=== PATIENT | female | born 1960 | race Caucasian/White ===

== ENCOUNTER 2025-08-11 20:16 | Inpatient (IN) | payer MEDICARE, BC, SELFPAY ==
[2025-08-11 16:30] VITALS: BP 146/60
[2025-08-11 16:52] LABS: Hematocrit 38.0 % (37.0-47.0); Hemoglobin 12.3 g/dL (12.0-16.0); Mean Corp Hgb Conc. 32.4 g/dL (33.0-37.0); Mean Corpuscular Volume 91.1 fL (81.0-99.0); Nucleated Red Blood Cells % 0 %; Platelet Count 273 10^3/uL (130-400); Red Cell Dist. Width 13.9 % (11.5-14.5)
--- NOTE | 2025-08-11 17:02 | ED.GENMED ---
History of Present Illness
<AARON Hernandez - Last Filed: 08/11/25 19:16>
General
Chief Complaint: Breathing Problem
Source: patient
Exam Limitations: none
Time Seen by Provider: 08/11/25 17:02
Nursing documentation reviewed up to this point in time: agreed with
History of Present Illness
History of Present Illness:
Patient is a 65-year-old female, with a past medical history of A-fib hypertension hyperlipidemia presents to the ER for shortness of breath. Patient reports shortness of breath started yesterday. She was seen by her family doctor and sent to the
ER for evaluation. She does complain of increasing lower extremity swelling. She reports she was on [place] on vacation 2 weeks ago and was admitted for Afib. At That time her potassium was found to be low her magnesium was also found to be low.
Patient reports she is anticoagulated on Pradaxa.
She used to be on Eliquis however 6 months ago her insurance stopped covering and she is this medication.
she is not on a diuretic.
Phy Exam
<AARON Hernandez - Last Filed: 08/11/25 19:16>
General Physical Exam
General Presentation: no apparent distress
General age: appears stated age
General Skin: warm and dry
General Habitus: normal
General Mental: alert
General Hydration: appears well hydrated
Cardiovascular Exam
Cardiovascular Exam: regular rate/rhythm, no murmur and normal peripheral pulses
Pulmonary Exam
Pulmonary Exam: lungs clear and no respiratory distress
Neurological Exam
Neurological Exam: alert and oriented x3
Musculoskeletal Exam
Musculoskeletal Exam: full ROM and other (mild l/e swelling b/l )
Skin Exam
Skin Exam: normal color and warm/dry
Psychiatric Exam
Psychiatric Exam: normal mood/affect
Scores
<AARON Hernandez - Last Filed: 08/11/25 19:16>
Heart Failure Risk
Heart Failure Risk Score: Not Applicable
Course
<AARON Hernandez - Last Filed: 08/11/25 19:16>
Orders/Labs/Results
Orders:
Orders
08/11/25 16:26
Electrocardiogram (*1) Urgent
Reason for Study: Shortness of Breath
EKG- Treatment ONCE
08/11/25 16:41
Complete Blood Count/With Diff Urgent
Comprehensive Metabolic Panel Urgent
NT-proBNP Urgent
Troponin I Urgent
08/11/25 17:14
CT Chest PE Study Urgent
Comment:
Reason For Exam: Acute SOB hypoxia
08/11/25 18:53
Furosemide [Lasix] 40 mg IV NOW STA
Potassium Chloride [KCl] 40 meq PO NOW STA
Abnormal Lab Results
08/11/25
16:41
WBC 10.9 H 10^3/uL
(4.8-10.8)
RBC 4.17 L 10^6/uL
(4.20-5.40)
MCHC 32.4 L g/dL
(33.0-37.0)
Absolute Neuts (auto) 7.8 H 10^3/uL
(1.4-6.5)
Absolute Monos (auto) 0.8 H 10^3/uL
(0.1-0.6)
Lymphocytes % 18.9 L %
(20.5-51.1)
Potassium 3.3 L mmol/L
(3.5-5.1)
Carbon Dioxide 31 H mmol/L
(22-30)
Glucose 140 H mg/dl
(70-99)
AST 77 H U/L
(14-36)
ALT 121 H U/L
(0-35)
08/11/25 16:41
08/11/25 16:41
Vital Signs
Initial and Last Documented VS:
Initial Vital Signs
Temp Pulse Resp BP Pulse Ox
98.1 F 70 22 146/60 82
08/11/25 16:30 08/11/25 16:30 08/11/25 16:30 08/11/25 16:30 08/11/25 16:30
Last Documented Vital Signs
Temp Pulse Resp BP Pulse Ox
98.1 F 67 15 142/54 89
08/11/25 16:30 08/11/25 19:06 08/11/25 18:47 08/11/25 19:06 08/11/25 18:47
Raw Material Planner consulted with Physician
Raw Material Planner consulted with physician?: Yes
Name of Physician Consulted: cy
<Eze Rabago MD - Last Filed: 08/11/25 18:54>
Orders/Labs/Results
Orders:
Orders
08/11/25 16:26
Electrocardiogram (*1) Urgent
Reason for Study: Shortness of Breath
EKG- Treatment ONCE
08/11/25 16:41
Complete Blood Count/With Diff Urgent
Comprehensive Metabolic Panel Urgent
NT-proBNP Urgent
Troponin I Urgent
08/11/25 17:14
CT Chest PE Study Urgent
Comment:
Reason For Exam: Acute SOB hypoxia
08/11/25 18:53
Furosemide [Lasix] 40 mg IV NOW STA
Potassium Chloride [KCl] 40 meq PO NOW STA
Abnormal Lab Results
08/11/25
16:41
WBC 10.9 H 10^3/uL
(4.8-10.8)
RBC 4.17 L 10^6/uL
(4.20-5.40)
MCHC 32.4 L g/dL
(33.0-37.0)
Absolute Neuts (auto) 7.8 H 10^3/uL
(1.4-6.5)
Absolute Monos (auto) 0.8 H 10^3/uL
(0.1-0.6)
Lymphocytes % 18.9 L %
(20.5-51.1)
Potassium 3.3 L mmol/L
(3.5-5.1)
Carbon Dioxide 31 H mmol/L
(22-30)
Glucose 140 H mg/dl
(70-99)
AST 77 H U/L
(14-36)
ALT 121 H U/L
(0-35)
08/11/25 16:41
08/11/25 16:41
Vital Signs
Initial and Last Documented VS:
Initial Vital Signs
Temp Pulse Resp BP Pulse Ox
98.1 F 70 22 146/60 82
08/11/25 16:30 08/11/25 16:30 08/11/25 16:30 08/11/25 16:30 08/11/25 16:30
Last Documented Vital Signs
Temp Pulse Resp BP Pulse Ox
98.1 F 67 15 142/54 89
08/11/25 16:30 08/11/25 19:06 08/11/25 18:47 08/11/25 19:06 08/11/25 18:47
<AARON Hernandez - Last Filed: 08/11/25 19:16>
MDM/Problems Addressed
Differential Diagnosis Includes:
Not limited to PE CHF anemia electrolyte abnormality ACS
MDM/Problems Addressed:
Symptoms are consistent with CHF. Patient does have increasing lower extremity swelling /hypoxia. CAT scan shows moderate acute interstitial and alveolar cardiogenic pulmonary edema. 40 of IV Lasix given. Patient is currently not on a diuretic.
Her potassium is low and I did order K-Dur as well for potassium 0.3. Her LFTs are minimally elevated. Her troponin is negative no chest pain. pt eval by ED attending .
Chronic conditions affecting care:
afib/htn/hyperlipidemia
<AARON Hernandez - Last Filed: 08/11/25 19:16>
*Radiology
Radiology exam reviewed: radiology read reviewed
*Pulse Oximetry
SaO2: 82
Oxygen Mode of Delivery: Room air
Patient hypoxic: yes
*EKG
Interpretation: abnormal
Heart Rate: 66
Rate: normal
Rhythm: sinus
Ischemia: non-specific ST changes
*Critical Care Note
Total Time (30-74mins, 75-104mins- exclusive of procedures): Not Applicable
ED Attending Note
<AARON Hernandez - Last Filed: 08/11/25 19:16>
-
Portions of this chart may have been created with voice recognition software.� Occasional wrong word or��sound alike� substitutions may have occurred due to the inherent limitations of voice recognition software.
<Eze Rabago MD - Last Filed: 08/11/25 18:54>
ED Attending Note
Patient seen and examined by attending physician: Yes
ED Attending Note:
I have seen and evaluated the patient with a [id number] encounter. I have spoken to the advance practicer provider and involved in the medical history, the physical exam, medical decision making.
Evaluation and management service: agree unless noted differently below.
Results interpretation: agree unless noted differently below.
Focused HPI: 65-year-old female with a past medical history of hypertension, hyperlipidemia, atrial fibrillation on flecainide and Pradaxa as well as metoprolol who presents to the ER with her for evaluation of shortness of breath. Patient
reports onset of symptoms yesterday and they have been constant and progressive today. Associated with some swelling in the legs. Denies any chest pain or palpitations. She was admitted while on vacation in [place] for 3 days last month with
similar symptoms related to her A-fib. Her usual vegetable preparer is through [facility].
Physical exam: Awake and alert not in distress. Hypoxic requiring 4 L nasal cannula. No cardiac rubs gallops or murmurs appreciated and regular rhythm on auscultation. She has no JVD. She does have rales at the lung bases. She has trace edema
in the legs.
Medical Decision Makin-year-old female presents with shortness of breath and leg swelling. Found to be hypoxic. Labs were significant for hypokalemia. proBNP 599 likely falsely low with elevated BMI. Chest CT showed pulmonary edema but no
PE. Overall picture is consistent with CHF. Plan to supplement potassium provide IV diuresis, admit for continued management.
Discharge Plan
Departure
Patient Disposition: Admit
Date of Disposition: 08/11/25
Time of Disposition: 18:56
Admit to doctor: hospitalist
Presentation/result/management discussed w/ accepting MD/DO: Hospitalist
Patient with high blood pressure during this ER visit?: Yes
Condition: Fair
Covid-19: Not Applicable
Discharge Problem:
CHF (congestive heart failure)
Prescriptions:
No Action
flecainide 150 mg Tablet
150 mg PO Q12H
Theragen Tablet
1 tab PO DAILY
cholecalciferol (vitamin D3) [Vitamin D3] 25 mcg (1,000 unit) Tablet
25 mcg PO DAILY
atorvastatin [Lipitor] 20 mg Tablet
20 mg PO DAILY
metoprolol succinate [Toprol XL] 50 mg Tablet Extended Release 24 Hr
50 mg PO DAILY
cyanocobalamin (vitamin B-12) 1,000 mcg Tablet
1,000 mcg PO DAILY
omeprazole 40 mg Capsule,Delayed Release(Dr/Ec)
40 mg PO BID
losartan-hydrochlorothiazide 100-25 mg Tablet
1 tab PO DAILY
diltiazem HCl 120 mg Capsule,Extended Release 24 Hr
120 mg PO DAILY
dabigatran etexilate [Pradaxa] 150 mg Capsule
150 mg PO BID
Referrals:
Gavi De Jesus, DO [Family Provider, Internal Medicine]
Interventions
Interventions:
*Risk Screen - Suicide Last Done: 08/11/25 16:33
*General Assessment Last Done: 08/11/25 16:33
*Neglect/Abuse Screening Last Done: 08/11/25 16:33
*ED COVID-19 Vaccine History Last Done: 08/11/25 16:33
*ED Influenza Vaccine History Last Done: 08/11/25 16:33
ED- Cardiac Assessment Last Done: 08/11/25 17:37
ED- Pulmonary Assessment Last Done: 08/11/25 17:37
ED-Skin Assessment Last Done: 08/11/25 17:38
Discharge Date and Time
Print Language: SOUTH AFRICAN
[2025-08-11 17:14] LABS: ALT (SGPT) 121 U/L (0-35); AST (SGOT) 77 U/L (14-36); Albumin 4.0 g/dl (3.5-5.0); Alkaline Phosphatase 98 U/L (38-126); Blood Urea Nitrogen 16 mg/dl (7-17); Calcium 8.8 mg/dl (8.4-10.2); Carbon Dioxide 31 mmol/L (22-30); Chloride 99 mmol/L (98-107); Glucose 140 mg/dl (70-99); Potassium 3.3 mmol/L (3.5-5.1); Sodium 135 mmol/L (135-145); Total Protein 7.3 g/dl (6.3-8.2); Troponin I < 0.012 ng/ml; eGFR > 60.00
[2025-08-11 17:37] VITALS: BMI 46.3
[2025-08-11 19:03] VITALS: BP 142/54
[2025-08-11] MEDS: LASIX 40 MG IV (19:06)
[2025-08-11] MEDS: KCL 40 MEQ PO (19:06)
[2025-08-11 19:26] LABS: Magnesium 1.8 mg/dl (1.6-2.3)
--- NOTE | 2025-08-11 19:52 | HPS.HSE ---
Family Physician
-
Family Physician: Gavi De Jesus DO
Chief Complaint
-
SOB
History of Present Illness
Patient is a 65y F with PMH significant for paroxysmal A-Fib, hypertension and obesity who presents to ED complaining of SOB and edema. Patient states that her symptoms started yesterday. She reports dyspnea with any degree of activity. No
chest pain / palpitations. Patient does report recent non-productive cough. No fevers / chills. No GI or symptoms. Patient denies any prior h/o similar symptoms.
Patient was hospitalized two weeks ago while on vacation in [place]. She states that she was hospitalized for A-Fib. She does not get palpitations / know when she is in A-Fib typically.
Her med regimen was adjusted including increase in metoprolol from 25 to 50mg daily. She is not on chronic diuretics.
She is on Pradaxa and denies any missed doses.
Medical History
Past Medical History
Past Medical History: Reports Other
Additional Past Medical History:
Paroxysmal Atrial Fibrillation
Hypertension
Obesity
TIAGO not on CPAP
Past Surgical History: Reports Other
Additional Past Surgical History:
x 4
Foot Surgery
Mohs Surgery (one week ago)
Social History
Tobacco: Former Smoker (Quit smoking 40 years ago.)
Alcohol: None
Drug: None
Personal:
Living: With Family
Family History
Family History: Other (Mother and 5 Maternal Uncles with heart disease.)
Allergies / Home Medications
Allergies reflects when Allergies were last updated in [facility].
Home Medications with original date entered in [facility]
Allergy/Medication List:
Allergies
Allergy/AdvReac Type Severity Reaction Status Date / Time
No Known Allergies Allergy Verified 08/11/25 16:34
Home Medications
atorvastatin 20 mg tablet (Lipitor) 20 mg PO DAILY High Cholesterol 08/11/25
cholecalciferol (vitamin D3) 25 mcg (1,000 unit) tablet (Vitamin D3) 25 mcg PO DAILY Supplement 08/11/25
cyanocobalamin (vitamin B-12) 1,000 mcg tablet 1,000 mcg PO DAILY Supplement 08/11/25
dabigatran etexilate 150 mg capsule (Pradaxa) 150 mg PO BID Blood Clot Prevention/Tx 08/11/25
diltiazem HCl 120 mg capsule,24 hr,extended release 120 mg PO DAILY Heart Disease/Condition 08/11/25
flecainide 150 mg tablet 150 mg PO Q12H Blood Pressure 08/11/25
losartan 100 mg-hydrochlorothiazide 25 mg tablet 1 tab PO DAILY Blood Pressure 08/11/25
metoprolol succinate 50 mg tablet,extended release 24 hr (Toprol XL) 50 mg PO DAILY Heart Disease/Condition 08/11/25
omeprazole 40 mg capsule,delayed release 40 mg PO BID Gastrointestinal Issue 08/11/25
therapeutic multivitamin 1 tab PO DAILY 08/11/25
Review of Systems
-
History Source: Patient
A 12 point ROS was completed and negative except as noted: Yes
Constitutional: Reports Fatigue; Denies Fever or Chills
Respiratory: Reports Cough and Trouble Breathing; Denies Hemoptysis
Cardiac: Denies Chest Pain or Palpitations
Abdomen/GI: Denies Abdominal Pain, Nausea, Vomiting or Diarrhea
: Denies Dysuria or Frequency
Musculoskeletal: Reports Edema; Denies Joint Pain
Neurological: Denies Dizzy or Headache
Psych: Denies Depression or Anxiety
Physical Exam
Vital Signs
Vital Signs
Temp Pulse Resp BP Pulse Ox
98.1 F 86 22 142/54 85
08/11/25 16:30 08/11/25 19:19 08/11/25 19:19 08/11/25 19:06 08/11/25 19:19
Physical Exam
General: Other (65y F in no acute distress.)
HEENT: Other (Thick neck. No appreciable JVD / HJR.)
Respiratory: Other (Decreased BS bilaterally. Few rales at bases. No wheeze / rhonchi.)
Cardiac: S1/S2 and Regular Rhythm; No Murmur
GI: Soft, Non Tender, Non Distended and Normal Bowel Sounds
Musculoskeletal: No Clubbing, No Cyanosis and Other (Trace b/l LE edema - L > R.)
Neuro: AO x 3
Laboratory Results
-
08/11/25 16:41
08/11/25 16:41
Laboratory Results
Total Bilirubin 0.6 mg/dl (0.2-1.3) 08/11/25 16:41
AST 77 U/L (14-36) H 08/11/25 16:41
ALT 121 U/L (0-35) H 08/11/25 16:41
Alkaline Phosphatase 98 U/L (38-126) 08/11/25 16:41
Troponin I < 0.012 ng/ml 08/11/25 16:41
Impression/Plan
-
A/P: Patient is a 65y F with PMH significant for A-Fib and hypertension who presents to ED complaining of SOB and LE edema.
Acute HF- Unknown Type
Acute Hypoxemic Respiratory Failure secondary to the above
- Admit for further evaluation and treatment.
- Exam / BNP rather unimpressive considering degree of hypoxemia (82% on room air).
- CTA negative for PE and showed moderate pulmonary edema.
- No personal history of CHF.
- IV Lasix BID. Follow daily weights, I/Os.
- Stop diltiazem for now. Increase metoprolol / titrate as needed.
- Check Echo.
- Cardiology evaluation for additional recommendations. Follows with [facility] in [place].
Paroxysmal Atrial Fibrillation
- Stable. Currently in NSR.
- Continue flecainide.
- Continue metoprolol and titrate as noted above.
- Hold CCB for now given new HF.
- Continue Pradaxa for stroke risk reduction.
Hypokalemia
- Mild hypokalemia on HCTZ.
- Hold losartan / HCTZ for now.
- Potassium replacement and adjust dose as needed.
Benign Hypertension
- Stable. Continue metoprolol and increase as needed.
- Hold losartan / HCTZ acutely. Resume losartan alone if needed for BP control.
- IV diuresis as noted above and adjust BP regimen as needed for adequate diuresis.
Obesity due to excess calories
TIAGO not on PAP Therapy
- Affects all aspects of care.
- Patient not tolerant of PAP therapy.
- Encourage healthy diet / increased exercise with goal of weight loss.
Pulmonary Nodule
- Incidentally noted RLL pulmonary nodule on CTA done today.
- Outpatient follow-up including repeat imaging in about 6 months.
DVT Prophylaxis: On Pradaxa
Code Status: Full
[2025-08-11 20:21] LABS: COVID-19 Antigen Negative (Negative)
[2025-08-11 21:40] VITALS: BMI 45.3
[2025-08-11 21:50] VITALS: BMI 45.3
[2025-08-11] MEDS: KLOR-CON 20 MEQ PO (21:55)
[2025-08-11] MEDS: TOPROL XL 50 MG PO (21:59)
[2025-08-11] MEDS: PRADAXA 150 MG PO (21:59)
[2025-08-11 22:00] VITALS: BP 154/64
[2025-08-11] MEDS: TAMBOCOR 200 MG PO (22:17)
[2025-08-11 23:02] LABS: Troponin I < 0.012 ng/ml
[2025-08-12 03:00] VITALS: BP 136/57
[2025-08-12 04:27] LABS: Hematocrit 37.4 % (37.0-47.0); Hemoglobin 11.9 g/dL (12.0-16.0); Mean Corp Hgb Conc. 31.8 g/dL (33.0-37.0); Mean Corpuscular Volume 94.9 fL (81.0-99.0); Platelet Count 245 10^3/uL (130-400); Red Cell Dist. Width 13.9 % (11.5-14.5)
[2025-08-12 04:47] LABS: Blood Urea Nitrogen 13 mg/dl (7-17); Calcium 8.6 mg/dl (8.4-10.2); Carbon Dioxide 35 mmol/L (22-30); Estimated Creatinine Clearance 124 ml/min; HDL Cholesterol 44 mg/dl; Potassium 3.9 mmol/L (3.5-5.1); eGFR > 60.00
[2025-08-12 04:57] LABS: Chloride 100 mmol/L (98-107); Glucose 128 mg/dl (70-99); LDL Cholesterol, Calculated 88 mg/dl; Sodium 139 mmol/L (135-145); Very Low Density Lipoprotein 25 mg/dl (0-30)
[2025-08-12 04:59] LABS: Troponin I < 0.012 ng/ml
[2025-08-12 06:00] VITALS: BMI 45.1
[2025-08-12 07:00] VITALS: BP 156/92
--- NOTE | 2025-08-12 08:55 | CON.CAR ---
Addendum entered and electronically signed by Napoleon Rahman MD 08/12/25 10:59:
I saw and examined the patient independently, and performed majority of MDM.
The SEASONER HAND's note was reviewed and I agree with the note with changes/additions below.
Comment: 65 yo female with PMH of paroxysmal A fib on pradaxa and flecainide, admitted with SOB, edema, hypokalemia. She denies chest pain. Exam with RRR, no murmurs, 1+ LE edema. Tele: SR 60s. Cr 0.6.
Acute HF, unknown type, new
-severe, requiring hospitalization for IV lasix and close monitoring of labs/tele
-echo
-IV lasix
-given low K, start aldactone
Paroxysmal A fib
-stable in sinus: continue flecainide and Toprol XL
-cont pradaxa
Original Note:
Consultation
Consultation Request
Date/Time Consultation Requested: 08/11/252124
Date/Time Consultation Performed: 08/12/2545
Requesting Provider: Dr. Marion
Performing Provider: Savannah WALKER for Dr. Rahman
Reason for Consultation: CHF, PAF
Medical History
-
Chief Complaint: SOB
History of Present Illness:
65 y/o female (cardiology patient of Dr. Dimple Barreto) with history of AFIB on flecainide and Pradaxa, hypertension, dyslipidemia, TIAGO (does not tolerate CPAP), severe obesity, and esophagitis. She is here for evaluation of SOB x 2 days. She also
noted LE edema. She does not check weights. Her O2 sat was 82% and she is on O2 by AL. Her CXR revealed acute interstitial and cardiogenic pulmonary edema. No CP and normal trops. She does report orthopnea and PND. She was recently in hospital in
[place] for AFIB and UTI, as well as low K+ and mag. She tells me her flecainide was recently increased and plan was for CV next week. She is currently in SR. She thinks she was in AFIB for about 1.5 weeks.
Past Medical History
Past Medical History: Arrhythmias, HTN, Hypercholesterolemia and Other (as above)
Social History
Tobacco: Former Smoker
Alcohol: None
Drug: None
Family History
Family History: Other (dad: CHF and valve replacement )
Allergies / Home Medications
Allergy/AdvReac Type Severity Reaction Status Date / Time
No Known Allergies Allergy Verified 08/11/25 16:34
�Medication �Instructions �Recorded �Confirmed �Type
atorvastatin 20 mg tablet (Lipitor) 20 mg PO 2000 High Cholesterol 08/11/25 08/11/25 History
cholecalciferol (vitamin D3) 25 25 mcg PO DAILY Supplement 08/11/25 08/11/25 History
mcg (1,000 unit) tablet (Vitamin
D3)
cyanocobalamin (vitamin B-12) 1,000 mcg PO DAILY Supplement 08/11/25 08/11/25 History
1,000 mcg tablet
dabigatran etexilate 150 mg 150 mg PO BID Blood Clot 08/11/25 08/11/25 History
capsule (Pradaxa) Prevention/Tx
diltiazem HCl 120 mg capsule,24 120 mg PO DAILY Heart 08/11/25 08/11/25 History
hr,extended release Disease/Condition
flecainide 100 mg tablet 100 mg PO DAILY ANTIARRHYTHMIC 08/11/25 08/11/25 History
flecainide 100 mg tablet See Rx Instructions .Route 08/11/25 08/11/25 History
.COMPLEX ANTIARRHYTHMIC
losartan 100 1 tab PO DAILY Blood Pressure 08/11/25 08/11/25 History
mg-hydrochlorothiazide 25 mg tablet
metoprolol succinate 50 mg See Rx Instructions .Route 08/11/25 08/11/25 History
tablet,extended release 24 hr .COMPLEX Heart Disease/Condition
(Toprol XL)
omeprazole 40 mg capsule,delayed 40 mg PO DAILY Gastrointestinal 08/11/25 08/11/25 History
release Issue
therapeutic multivitamin 1 tab PO DAILY Supplement 08/11/25 08/11/25 History
Review of Systems
-
History Source: Patient
All other systems: Negative unless noted
Respiratory: Trouble Breathing
Musculoskeletal: Edema
Physical Exam
Vital Signs
Temp Pulse Resp BP Pulse Ox
98.4 F 66 12 156/92 96
08/12/25 07:00 08/12/25 07:00 08/12/25 07:00 08/12/25 07:00 08/12/25 07:00
Lab Results
08/12/25 04:11
08/12/25 04:11
Troponin I < 0.012 ng/ml 08/12/25 04:11
Grz-V-Mqavupcevhl Pept 599 pg/ml 08/11/25 16:41
Physical Exam
General: Well Developed and No Apparent Distress
HEENT: Normocephalic and Anicteric
Respiratory: Crackles (b/l bases ) and Other (on O2 by NC)
Cardiac: Regular Rhythm
Musculoskeletal: Edema (mild BLE edema)
Skin: Warm and Dry
Neuro: AO x 3
Psych: Calm
Impression / Plan
-
SOB:
-there is component of acute HF- type unknown, in setting of recent afib recurrence. Check echo. Agree with IV diuresis, which requires intensive monitoring. Hypokalemia noted on arrival, resolved following replacement. Will stop continued
replacement and add Aldactone (BP, hypokalemia, and CHF). Will have CM pavon [id number], but may just recommend add as an OP to avoid adding too many meds and avoiding AMOR as result; she does not have frequent UTI's (just the one a few weeks ago).
-other CT scan abnormalities per primary (see below)
AFIB: paroxysmal
-she reports that current medications as OP include flecainide 100 mg in AM and 200 mg in PM (recently increased by her manager of finance), as well as metoprolol 50 mg in PM and diltiazem 120 mg PO BID. Primary team has stopped diltiazem and increased
metoprolol. Monitor telemetry with these changes.
-continue Pradaxa for OAC
HTN:
-monitor with medicine adjustments -dilt stopped, metoprolol increased, losartan/HCTZ stopped- will add aldactone instead, continue IV diuresis
Obesity, severe: would benefit from weight loss moving forward
Untreated sleep apnea: reports she does not tolerate treatment
Data:
Chest CT: MODERATE ACUTE INTERSTITIAL and ALVEOLAR CARDIOGENIC PULMONARY EDEMA. Mild cardiomegaly. Small right pleural effusion. mild bibasilar subsegmental atelectasis. 1.5 cm part solid pulmonary nodule in the right lower lobe. Diagnostic
possibilities are (1) right lower lobe lung cancer or (2) focal infectious or inflammatory pneumonitis. 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
Data Reviewed
-
EKG: Tracing Personally Visualized and interpreted (NSR 62 BPM, 1st degree AVB, QTC 488 ms)
CT Scan: Report Reviewed by me (CT scan as noted)
Medical Tests (Nuc Med, Echo etc): Other (echo ordered and pending)
Labs: Labs Reviewed by me
[2025-08-12] MEDS: TAMBOCOR 100 MG PO (09:14)
[2025-08-12] MEDS: KLOR-CON 20 MEQ PO (09:14)
[2025-08-12] MEDS: PROTONIX 40 MG PO (09:14)
[2025-08-12] MEDS: LIPITOR 20 MG PO (09:14)
[2025-08-12] MEDS: PRADAXA 150 MG PO ×2 (09:14→20:46)
[2025-08-12] MEDS: TOPROL XL 50 MG PO ×2 (09:14→20:47)
[2025-08-12] MEDS: LASIX 40 MG IV ×2 (09:15→15:23)
[2025-08-12 09:40] LABS: Glycohemoglobin (HgbA1c) 6.3 % (4.0-5.9)
--- NOTE | 2025-08-12 10:30 | CARDSERVLU ---
Echocardiogram with Lumason completed after protocol screening completed. Allergies verified.
Patent IV site: __Right antecubital IV site clear___
IV site flushed with 0.9% NaCl pre and post administration.
Diluted bolus method utilized to enhance visualization of ventricular babin.
Total volume given: _4___ mL
Patient tolerated all procedures well without complications.
Procedure completed by Ashlyn Tarango (Lumason given by medical laboratory technologist).
[2025-08-12] MEDS: ALDACTONE 25 MG PO (10:59)
[2025-08-12 12:17] VITALS: BP 124/50
--- NOTE | 2025-08-12 12:51 | W.PN.HOSP.TC ---
Today's Communication/Plan
-
see outlined plan below
Assessment / Plan
Assessment / Plan
Assessment:
Acute HFpEF - new diagnosis
Acute Hypoxemic Respiratory Failure secondary to the above
- Exam/BNP rather unimpressive considering degree of hypoxemia (82% on room air).
- CTA negative for PE and showed moderate pulmonary edema.
- no prior hx of CHF
- Echo: Normal biventricular size and systolic function, with no regional wall motion abnormalities. Estimated LVEF 55-60%. No valve disease.
- continue IV Lasix - requires intensive monitoring of I/Os, weights, lytes
- GDMT: BB, Aldactone
- Wean O2 as able; add IS
- CBC cards following. OP is Dr. Dimple Barreto - [facility]
Paroxysmal Atrial Fibrillation
- Stable. Currently in NSR.
- Continue flecainide.
- Continue metoprolol and titrate as noted above.
- Hold CCB for now given new HF.
- Continue Pradaxa for stroke risk reduction.
Hypokalemia
- Mild hypokalemia on HCTZ.
- Hold losartan/HCTZ for now.
- Potassium replacement and adjust dose as needed.
Benign Hypertension
- Stable. continue metoprolol and increase as needed.
- Hold losartan/HCTZ acutely. Resume losartan alone if needed for BP control.
- IV diuresis as noted above and adjust BP regimen as needed for adequate diuresis.
Obesity due to excess calories
TIAGO not on PAP Therapy
- Affects all aspects of care.
- Patient not tolerant of PAP therapy.
- Encourage healthy diet/increased exercise with goal of weight loss.
- OP sleep evaluation
- consider Zepbound - d/w patient/
Pulmonary Nodule
- Incidentally noted RLL pulmonary nodule on CTA done today.
- Outpatient follow-up including repeat imaging in about 6 months.
DVT Prophylaxis: Pradaxa
Code Status: Full
Anticipated Discharge: 24 - 48 hours
Subjective/Interval History
-
Date of Service: August 12, 2025
reports breathing improving
LE edema improving
weight down from 130 to 126 kg
Objective Data
-
Labs:
Laboratory Results
08/12/25
04:11
WBC 9.7
Hgb 11.9 L
Hct 37.4
Plt Count 245
Sodium 139
Potassium 3.9
Chloride 100
Carbon Dioxide 35 H
BUN 13
Creatinine 0.6
Glucose 128 H
Calcium 8.6
Vital Signs:
Vital Signs
Temp Pulse Resp BP Pulse Ox
98.0 F 69 18 124/50 95
08/12/25 12:17 08/12/25 12:17 08/12/25 12:17 08/12/25 12:17 08/12/25 12:17
Physical Exam
-
General: No Apparent Distress
HEENT: Normocephalic and Atraumatic
Respiratory: Crackles (faint) and Decreased Breath Sounds
Cardiac: Regular Rhythm and S1/S2
GI: Soft
Musculoskeletal: No Edema and Other (trace edema bilateral LE)
Psych: Calm
Data Reviewed
-
Total Time Spent with Patient (in minutes): 51
Labs: Labs Reviewed by me
[2025-08-12 12:52] LABS: Troponin I 0.015 ng/ml
--- NOTE | 2025-08-12 13:11 | CM ---
CM reviewed chart, patient seen with , initial assessment completed.
Patient is a 65y F with PMH significant for paroxysmal A-Fib, hypertension and obesity who presents to ED complaining of SOB and edema.
Patient resides with her in a multiple level home, two steps to enter.
Patient is independent with ADLs/IADLs, denies use of DME, VN/SNF. Patient does not wear O2 at home.
PCP Gavi Paula, Pharmacy [facility], confirmed prescription coverage.
Patient denies insecurities at home.
Consult completed for pavon of Jardiance/Farxiga 10 mg- per Pharmacy, $30 co pay for one month supply. Patient and Physician updated.
CM will continue to follow for all d/c needs.
Plan; home no needs anticipated
[2025-08-12 15:24] VITALS: BP 106/65
[2025-08-12] MEDS: TAMBOCOR 200 MG PO (17:12)
[2025-08-12 19:00] VITALS: BP 145/62
[2025-08-12 23:00] VITALS: BP 111/51
[2025-08-12] MEDS: TYLENOL 650 MG PO (23:18)
[2025-08-12] MEDS: TESSALON PERLES 200 MG PO (23:30)
[2025-08-13 03:00] VITALS: BP 136/53
[2025-08-13 06:00] VITALS: BMI 44.6
[2025-08-13 07:00] VITALS: BP 121/54
--- NOTE | 2025-08-13 08:42 | W.PN.CD ---
Addendum entered and electronically signed by Napoleon Rahman MD 08/13/25 11:11:
I saw and examined the patient independently, and performed majority of MDM.
The DOCUMENTUM CONSULTANT's note was reviewed and I agree with the note with changes/additions below.
Comment: 65 yo female with PMH of paroxysmal A fib on pradaxa and flecainide, admitted with acute on chronic HF. Still with some edema, SOB. Exam with irregular rhythm, no murmurs, trace LE edema. Cr 0.6. Tele: SR--> A fib 90s.
Acute HFPEF, new
-severe, requiring hospitalization for IV lasix and close monitoring of labs/tele
-echo: EF 55-60%, no sig valve disease
-continue lasix 40mg IV bid, and aldactone 25mg daily
-defer SGLT2i given recent UTI
Paroxysmal A fib
-was sinus on admit; now back in A fib
-increase Toprol XL to 100mg bid
-continue flecainide
-cont pradaxa
Original Note:
Today's Communication / Plan
-
continue IV Lasix and current medical therapy
Impression / Plan
-
HFpEF - acute.
-in setting of recent Afib recurrence
-echo as below, EF normal, no valve disease
-agree with IV diuresis, which requires intensive monitoring
-weight on admit 286 lbs, now 276 lbs
Hypokalemia - noted on arrival, resolved following replacement
-stop continued KCL replacement since added Aldactone (BP, hypokalemia, and CHF). awaiting am labs
-will have CM pavon SGLT2I, but may just add as an OP to avoid adding too many meds and avoiding AMOR as result; she does not have frequent UTI's (just the one a few weeks ago)
Afib - paroxysmal
-current OP medications are flecainide 100 mg in AM and 200 mg in PM (recently increased by her automatic brine mixer operator), as well as metoprolol 50 mg in PM and diltiazem 120 mg PO BID
-stopped diltiazem and increased metoprolol. Monitor telemetry with these changes
-continue Pradaxa for OAC
HTN - chronic
-monitor with diltiazem stopped, metoprolol increased, losartan/HCTZ stopped, Aldactone added and continue IV diuresis
Obesity - severe
-would benefit from weight loss
Untreated sleep apnea - chronic
-reports she does not tolerate treatment
Data:
Chest CT: MODERATE ACUTE INTERSTITIAL and ALVEOLAR CARDIOGENIC PULMONARY EDEMA. Mild cardiomegaly. Small right pleural effusion. mild bibasilar subsegmental atelectasis. 1.5 cm part solid pulmonary nodule in the right lower lobe. Diagnostic
possibilities are (1) right lower lobe lung cancer or (2) focal infectious or inflammatory pneumonitis. 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
Echo 08/12/25:
1. Contrast was used.
2. Normal biventricular size and systolic function, with no regional wall motion abnormalities. Estimated LVEF 55-60%.
3. No significant valve disease.
4. No prior study for comparison.
Physical Exam
Vital Signs/Labs
Vital Signs
Temp Pulse Resp BP Pulse Ox
100 F 65 18 121/54 94
08/13/25 07:00 08/13/25 07:00 08/13/25 07:00 08/13/25 07:00 08/13/25 07:00
08/12/25 08/13/25 08/14/25
06:59 06:59 06:59
Actual Weight 279 lb 3 oz 276 lb 6 oz
08/12/25 04:11
Magnesium 1.8 mg/dl (1.6-2.3) 08/11/25 16:41
Triglycerides 129 mg/dl (10-149) 08/12/25 04:11
LDL Cholesterol, Calc 88 mg/dl 08/12/25 04:11
VLDL Cholesterol, Calc 25 mg/dl (0-30) 08/12/25 04:11
HDL Cholesterol 44 mg/dl 08/12/25 04:11
08/11/25
16:41
Dlr-S-Avzlyciwajm Pept 599
LAB Results
08/11/25 08/11/25 08/11/25
16:41 21:25 22:30
Troponin I < 0.012 Cancelled < 0.012
08/12/25 08/12/25
04:11 12:24
Troponin I < 0.012 0.015
Physical Exam
Constitutional: No acute distress
EENT: Anicteric and Moist mucous membranes
Cardiovascular: Rhythm/rate is irregular
Respiratory: Respiratory effort normal and Other (diminished b/l bases)
GI: Soft, Non tender and Normal bowel sounds
Neuro/Psych: AO x 3
Other: Skin (warm, dry)
Data Reviewed
-
Date of Service: August 13, 2025
Medical Decision Making: Reviewed Test Results
EKG: Tracing Personally Visualized and interpreted
Echo: Report Reviewed by me
Labs: Labs Reviewed by me
[2025-08-13] MEDS: TOPROL XL 50 MG PO ×2 (08:45→12:29)
[2025-08-13] MEDS: ALDACTONE 25 MG PO (08:45)
[2025-08-13] MEDS: PROTONIX 40 MG PO (08:45)
[2025-08-13] MEDS: PRADAXA 150 MG PO ×2 (08:45→20:47)
[2025-08-13] MEDS: TAMBOCOR 100 MG PO (08:46)
[2025-08-13] MEDS: LASIX 40 MG IV ×2 (08:46→16:19)
[2025-08-13] MEDS: LIPITOR 20 MG PO (08:46)
[2025-08-13 09:23] LABS: Blood Urea Nitrogen 16 mg/dl (7-17); Calcium 8.4 mg/dl (8.4-10.2); Carbon Dioxide 35 mmol/L (22-30); Chloride 93 mmol/L (98-107); Estimated Creatinine Clearance 123 ml/min; Glucose 92 mg/dl (70-99); Magnesium 1.9 mg/dl (1.6-2.3); Potassium 3.8 mmol/L (3.5-5.1); Sodium 133 mmol/L (135-145); eGFR > 60.00
[2025-08-13 11:00] VITALS: BP 117/60
--- NOTE | 2025-08-13 11:05 | W.PN.HOSP.TC ---
Today's Communication/Plan
-
increase rate control
continue IV diuresis
wean O2 as able
hopefully DC in 24 hours
Assessment / Plan
Assessment / Plan
Assessment:
Acute HFpEF - new diagnosis
Acute Hypoxemic Respiratory Failure secondary to the above
- Exam/BNP rather unimpressive considering degree of hypoxemia (82% on room air).
- CTA negative for PE and showed moderate pulmonary edema.
- no prior hx of CHF
- Echo: Normal biventricular size and systolic function, with no regional wall motion abnormalities. Estimated LVEF 55-60%. No valve disease.
- continue IV Lasix - requires intensive monitoring of I/Os, weights, lytes
- GDMT: BB, Aldactone
- patient has affordability for SGLT2-inhibitor; can review for addition with her primary Carpenter'S Helper.
- Wean O2 as able; encourage IS
- CBC cards following. OP is Dr. Dimple [facility]reto - [facility]
Paroxysmal Atrial Fibrillation
- Stable. Currently in NSR.
- Continue flecainide.
- Continue metoprolol and titrate as noted above.
- Hold CCB for now given new HF.
- Continue Pradaxa for stroke risk reduction.
Hypokalemia
- Mild hypokalemia on HCTZ.
- stop losartan/HCTZ as Aldactone added
- Potassium replacement and adjust dose as needed.
Benign Hypertension
- Stable. continue metoprolol and increase as needed.
- stop losartan/HCTZ as Aldactone added
- IV diuresis as noted above and adjust BP regimen as needed for adequate diuresis.
Obesity due to excess calories
TIAGO not on PAP Therapy
- Affects all aspects of care.
- Patient not tolerant of PAP therapy.
- Encourage healthy diet/increased exercise with goal of weight loss.
- OP sleep evaluation
- consider Zepbound - d/w patient/
Pulmonary Nodule
- Incidentally noted RLL pulmonary nodule on CTA done today.
- Outpatient follow-up including repeat imaging in about 6 months with her established Pulmonary doctor.
DVT Prophylaxis: Pradaxa
Code Status: Full
Anticipated Discharge: Within 24 hours
Subjective/Interval History
-
Date of Service: August 13, 2025
HRs slightly elevated; denies palpatations, CP or SOB
down to 2L NC
Objective Data
-
Labs:
Laboratory Results
08/13/25
07:27
Sodium 133 L
Potassium 3.8
Chloride 93 L
Carbon Dioxide 35 H
BUN 16
Creatinine 0.6
Glucose 92
Calcium 8.4
Vital Signs:
Vital Signs
Temp Pulse Resp BP Pulse Ox
100 F 65 18 121/54 94
08/13/25 07:00 08/13/25 07:00 08/13/25 07:00 08/13/25 07:00 08/13/25 07:00
I&O
08/12/25 08/13/25 08/14/25
06:59 06:59 06:59
Intake Total 720 / 720
Balance 720 / 720
Physical Exam
-
General: No Apparent Distress
HEENT: Normocephalic and Atraumatic
Respiratory: Negative Wheezes
Cardiac: Regular Rhythm and S1/S2
GI: Soft
Neuro: AO x 3
Psych: Calm
Data Reviewed
-
Total Time Spent with Patient (in minutes): 51
Labs: Labs Reviewed by me
[2025-08-13 15:00] VITALS: BP 131/62
[2025-08-13] MEDS: TAMBOCOR 200 MG PO (17:14)
[2025-08-13 19:00] VITALS: BP 128/61
[2025-08-13] MEDS: TOPROL XL 100 MG PO (20:47)
[2025-08-13 23:00] VITALS: BP 141/69
[2025-08-14 03:00] VITALS: BP 132/60
[2025-08-14 04:30] VITALS: BMI 44.3
[2025-08-14 07:20] VITALS: BP 135/68
[2025-08-14 08:16] LABS: Blood Urea Nitrogen 18 mg/dl (7-17); Calcium 8.7 mg/dl (8.4-10.2); Carbon Dioxide 40 mmol/L (22-30); Chloride 93 mmol/L (98-107); Estimated Creatinine Clearance 123 ml/min; Glucose 98 mg/dl (70-99); Potassium 3.9 mmol/L (3.5-5.1); Sodium 134 mmol/L (135-145); eGFR > 60.00
[2025-08-14] MEDS: LIPITOR 20 MG PO (08:41)
[2025-08-14] MEDS: PRADAXA 150 MG PO ×2 (08:41→19:50)
[2025-08-14] MEDS: PROTONIX 40 MG PO (08:41)
[2025-08-14] MEDS: TOPROL XL 100 MG PO ×2 (08:41→19:51)
[2025-08-14] MEDS: TAMBOCOR 100 MG PO (08:41)
[2025-08-14] MEDS: ALDACTONE 25 MG PO (08:41)
[2025-08-14] MEDS: LASIX 40 MG IV ×2 (08:42→16:49)
--- NOTE | 2025-08-14 10:29 | W.PN.CD ---
Today's Communication / Plan
-
- Rate controlled atrial fibrillation. On metoprolol 100 mg twice a day. Continue flecainide.
- Chlorthalidone 25 mg x1 now
Impression / Plan
-
HFpEF - acute.
-in setting of recent Afib recurrence
-echo as below, EF normal, no valve disease
-agree with IV diuresis, which requires intensive monitoring
-weight on admit 286 lbs, now 274 lbs
Hypokalemia - noted on arrival, resolved following replacement
-stop continued KCL replacement since added Aldactone (BP, hypokalemia, and CHF). awaiting am labs
-will have CM pavon SGLT2I, but may just add as an OP to avoid adding too many meds and avoiding AMOR as result; she does not have frequent UTI's (just the one a few weeks ago)
Afib - paroxysmal
-current OP medications are flecainide 100 mg in AM and 200 mg in PM (recently increased by her processing analyst), as well as metoprolol 50 mg in PM and diltiazem 120 mg PO BID
-stopped diltiazem and increased metoprolol. Monitor telemetry with these changes
-Still in AF
-continue Pradaxa for OAC
HTN - chronic
-monitor with diltiazem stopped, metoprolol increased, losartan/HCTZ stopped, Aldactone added and continue IV diuresis
Obesity - severe
-would benefit from weight loss
Untreated sleep apnea - chronic
-reports she does not tolerate treatment
Data:
Chest CT: MODERATE ACUTE INTERSTITIAL and ALVEOLAR CARDIOGENIC PULMONARY EDEMA. Mild cardiomegaly. Small right pleural effusion. mild bibasilar subsegmental atelectasis. 1.5 cm part solid pulmonary nodule in the right lower lobe. Diagnostic
possibilities are (1) right lower lobe lung cancer or (2) focal infectious or inflammatory pneumonitis. 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
Echo 08/12/25:
1. Contrast was used.
2. Normal biventricular size and systolic function, with no regional wall motion abnormalities. Estimated LVEF 55-60%.
3. No significant valve disease.
4. No prior study for comparison.
Physical Exam
Vital Signs/Labs
Vital Signs
Temp Pulse Resp BP Pulse Ox
100.3 F 75 16 135/68 95
08/14/25 07:20 08/14/25 08:41 08/14/25 07:20 08/14/25 08:41 08/14/25 07:20
08/13/25 08/14/25 08/15/25
06:59 06:59 06:59
Actual Weight 125.362 kg 124.341 kg
08/12/25 04:11
08/14/25 07:03
Magnesium 1.9 mg/dl (1.6-2.3) 08/13/25 07:27
Triglycerides 129 mg/dl (10-149) 08/12/25 04:11
LDL Cholesterol, Calc 88 mg/dl 08/12/25 04:11
VLDL Cholesterol, Calc 25 mg/dl (0-30) 08/12/25 04:11
HDL Cholesterol 44 mg/dl 08/12/25 04:11
08/11/25
16:41
Vhm-X-Jtinbqasffh Pept 599
LAB Results
08/11/25 08/11/25 08/11/25
16:41 21:25 22:30
Troponin I < 0.012 Cancelled < 0.012
08/12/25 08/12/25
04:11 12:24
Troponin I < 0.012 0.015
Physical Exam
Constitutional: No acute distress and Comfortable
EENT: Anicteric and Moist mucous membranes
Cardiovascular: Rhythm & rate is regular, Pedal edema is absent and JVD pressure is normal
Respiratory: Respiratory effort normal and Lungs clear to auscul.
GI: Soft, Non tender and Normal bowel sounds
Neuro/Psych: Alert, Oriented, AO x 3 and Motor deficits absent
Data Reviewed
-
Date of Service: August 14, 2025
Medical Decision Making: Reviewed Test Results, Test Interpretation and Review of Case with other Provider
EKG: Tracing Personally Visualized and interpreted
Echo: Report Reviewed by me
Labs: Labs Reviewed by me
Old Records: Reviewed
[2025-08-14 11:15] VITALS: BP 124/60
[2025-08-14 15:30] VITALS: BP 119/59
--- NOTE | 2025-08-14 16:03 | W.PN.HOSP.TC ---
Today's Communication/Plan
-
continue IV Lasix
follow CBC cards
Assessment / Plan
Assessment / Plan
Assessment:
Acute HFpEF - new diagnosis
Acute Hypoxemic Respiratory Failure secondary to the above
- Exam/BNP rather unimpressive considering degree of hypoxemia (82% on room air).
- CTA negative for PE and showed moderate pulmonary edema.
- no prior hx of CHF
- Echo: Normal biventricular size and systolic function, with no regional wall motion abnormalities. Estimated LVEF 55-60%. No valve disease.
- continue IV Lasix - requires intensive monitoring of I/Os, weights, lytes
- GDMT: BB, Aldactone
- patient has affordability for SGLT2-inhibitor; can review for addition with her primary Planer Chain Offbearer.
- Wean O2 as able; encourage IS
- CBC cards following. OP is Dr. Dimple Barreto - [facility]
Paroxysmal Atrial Fibrillation
- Stable. Currently in NSR.
- Continue flecainide.
- Continue metoprolol and titrate as noted above.
- Hold CCB for now given new HF.
- Continue Pradaxa for stroke risk reduction.
Hypokalemia
- Mild hypokalemia on HCTZ.
- stop losartan/HCTZ as Aldactone added
- Potassium replacement and adjust dose as needed.
Benign Hypertension
- Stable. continue metoprolol and increase as needed.
- stop losartan/HCTZ as Aldactone added
- IV diuresis as noted above and adjust BP regimen as needed for adequate diuresis.
Obesity due to excess calories
TIAGO not on PAP Therapy
- Affects all aspects of care.
- Patient not tolerant of PAP therapy.
- Encourage healthy diet/increased exercise with goal of weight loss.
- OP sleep evaluation
- consider Zepbound - d/w patient/
Pulmonary Nodule
- Incidentally noted RLL pulmonary nodule on CTA done today.
- Outpatient follow-up including repeat imaging in about 6 months with her established Pulmonary doctor.
DVT Prophylaxis: Pradaxa
Code Status: Full
Anticipated Discharge: Within 24 hours
Subjective/Interval History
-
Date of Service: August 14, 2025
SOB improving
denies CP
Objective Data
-
Labs:
Laboratory Results
08/14/25
07:03
Sodium 134 L
Potassium 3.9
Chloride 93 L
Carbon Dioxide 40 H
BUN 18 H
Creatinine 0.6
Glucose 98
Calcium 8.7
Vital Signs:
Vital Signs
Temp Pulse Resp BP Pulse Ox
98.9 F 85 16 124/60 95
08/14/25 11:15 08/14/25 11:15 08/14/25 11:15 08/14/25 11:15 08/14/25 11:15
I&O
08/13/25 08/14/25 08/15/25
06:59 06:59 06:59
Intake Total 720 / 720 1260 / 1260
Balance 720 / 720 1260 / 1260
Physical Exam
-
General: No Apparent Distress and Morbidly Obese
HEENT: Normocephalic and Atraumatic
Respiratory: Negative Wheezes
Cardiac: Regular Rhythm and S1/S2
GI: Soft and Nontender
Genito-urinary: No Costovertebral Tender
Neuro: AO x 3
Psych: Calm
Data Reviewed
-
Total Time Spent with Patient (in minutes): 51
Labs: Labs Reviewed by me
[2025-08-14] MEDS: TAMBOCOR 200 MG PO (16:49)
[2025-08-14] MEDS: TESSALON PERLES 200 MG PO (17:12)
[2025-08-14 19:55] VITALS: BP 107/51
[2025-08-14 23:11] VITALS: BP 137/69
[2025-08-15 03:00] VITALS: BP 139/60
[2025-08-15 06:00] VITALS: BMI 43.5
[2025-08-15 07:00] VITALS: BP 108/77
[2025-08-15] MEDS: PRADAXA 150 MG PO (08:43)
[2025-08-15] MEDS: TAMBOCOR 100 MG PO (08:43)
[2025-08-15] MEDS: LIPITOR 20 MG PO (08:43)
[2025-08-15] MEDS: TOPROL XL 100 MG PO (08:43)
[2025-08-15] MEDS: ALDACTONE 25 MG PO (08:43)
[2025-08-15] MEDS: PROTONIX 40 MG PO (08:44)
[2025-08-15] MEDS: LASIX 40 MG IV (08:44)
[2025-08-15 09:11] LABS: Blood Urea Nitrogen 20 mg/dl (7-17); Calcium 9.1 mg/dl (8.4-10.2); Carbon Dioxide 34 mmol/L (22-30); Chloride 95 mmol/L (98-107); Estimated Creatinine Clearance 104 ml/min; Glucose 97 mg/dl (70-99); Magnesium 2.0 mg/dl (1.6-2.3); Potassium 3.8 mmol/L (3.5-5.1); Sodium 137 mmol/L (135-145); eGFR > 60.00
--- NOTE | 2025-08-15 10:26 | W.PN.HOSP.TC ---
Today's Communication/Plan
-
dc to home today
Assessment / Plan
Assessment / Plan
Assessment:
Acute HFpEF - new diagnosis
Acute Hypoxemic Respiratory Failure secondary to the above
- Exam/BNP rather unimpressive considering degree of hypoxemia (82% on room air).
- CTA negative for PE and showed moderate pulmonary edema.
- no prior hx of CHF
- Echo: Normal biventricular size and systolic function, with no regional wall motion abnormalities. Estimated LVEF 55-60%. No valve disease.
- s/p IV Lasix; dc on oral Lasix
- GDMT: BB, Aldactone
- patient has affordability for SGLT2-inhibitor; can review for addition with her primary Pediatric Dental Assistant.
- CBC cards following. OP is Dr. Dimple Barreto - [facility]
Paroxysmal Atrial Fibrillation
- Stable. Currently in NSR.
- Continue flecainide.
- Continue metoprolol and titrate as noted above.
- stop CCB for now given new HF.
- Continue Pradaxa for stroke risk reduction.
Hypokalemia
- Mild hypokalemia on HCTZ.
- stop losartan/HCTZ as Aldactone added
- Potassium replacement and adjust dose as needed.
Benign Hypertension
- Stable. continue metoprolol and increase as needed.
- stop losartan/HCTZ as Aldactone added
Obesity due to excess calories
TIAGO not on PAP Therapy
- Affects all aspects of care.
- Patient not tolerant of PAP therapy.
- Encourage healthy diet/increased exercise with goal of weight loss.
- OP sleep evaluation
- consider Zepbound - d/w patient/
Pulmonary Nodule
- Incidentally noted RLL pulmonary nodule on CTA done today.
- Outpatient follow-up including repeat imaging in about 6 months with her established Pulmonary doctor.
DVT Prophylaxis: Pradaxa
Code Status: Full
More than 30 minutes spent in discharge including
Final examination of the patient
Summarizing hospital stay
Instructions for continuing care to all relevant caregivers
Preparation of discharge records, prescriptions, and referral forms
Total time spent (in minutes): 41
Anticipated Discharge: Today
Subjective/Interval History
-
Date of Service: August 15, 2025
resting comfortably, no complaints
off O2
Objective Data
-
Labs:
Laboratory Results
08/15/25
07:51
Sodium 137
Potassium 3.8
Chloride 95 L
Carbon Dioxide 34 H
BUN 20 H
Creatinine 0.7
Glucose 97
Calcium 9.1
Vital Signs:
Vital Signs
Temp Pulse Resp BP Pulse Ox
99.5 F 91 14 136/83 94
08/15/25 07:00 08/15/25 08:43 08/15/25 07:00 08/15/25 08:43 08/15/25 07:00
I&O
08/14/25 08/15/25 08/16/25
06:59 06:59 06:59
Intake Total 1260 / 1260 240 / 240 240 / 240
Balance 1260 / 1260 240 / 240 240 / 240
Physical Exam
-
General: No Apparent Distress
HEENT: Normocephalic and Atraumatic
Respiratory: Negative Wheezes
Cardiac: Regular Rhythm and S1/S2
GI: Soft and Nontender
Musculoskeletal: No Edema
Neuro: AO x 3
Psych: Calm
Data Reviewed
-
Total Time Spent with Patient (in minutes): 42
Labs: Labs Reviewed by me
--- NOTE | 2025-08-15 10:34 | W.DCSUMMARY ---
Discharge Summary
Discharge Data
Date of Admission: 08/11/25
Date of Discharge: 08/15/25
-
Pending Results: No
Hospital Course
65 y/o F hx of paroxysmal A-Fib, hypertension and obesity who presented to ED on 08/11 complaining of SOB and edema. She was found to have pulmonary edema on CT and elevated BNP; ruling in for acute CHF. Echo showed Normal biventricular size and
systolic function, with no regional wall motion abnormalities. Estimated LVEF 55-60%. She received IV Lasix with weight reduction and was transitioned to oral Lasix 40mg daily. Aldactone was started (Losartan/HCTZ stopped) and Toprol XL was titrated
up to 100mg. She was maintained on Flecainide as well for A. Fib in addition to Pradaxa. SLGT2 inhibitors were priced to $30 dollars/monthly but patient will discuss with her outpatient Gunner Mate (Dr. Dimple Barreto - [facility]). She will
follow up in 1-2 weeks with this office.
Her CT showed 1.5 cm part solid pulmonary nodule in the right lower lobe. She will need repeat CT in 6 months and pulmonary follow up. She was recommended to follow up with sleep medicine also on trialing a new CPAP mask as she is noncompliant with
current mask. Also recommended patient discuss Zepbound for weight loss.
Patient was discharged home on 08/15.
Discharge Plan
-
Patient Disposition: Home (Routine Discharge)
Discharge Diagnosis/Procedures: acute CHF requiring IV diuretics
Condition: Fair
Diet: Low Cholesterol, 2 Gram Sodium and Restrict fluids to 48 oz
Activity: As tolerated
Bathing Restrictions: None
Blood Work: BMP in 1 week - have results sent to your seaport planning manager. Script given.
Others Tests: CT scan in 6 months- your lung doctor or primary care doctor can arrange this.
Activity Restrictions/Additional Instructions:
Please discuss SLGT2 inhibitor class of medication with Dr. Musa - this is an additional heart mediciation which is $30 per month per your insurance/pharmacy. We opted not to start it now due to not wanting to add to many medications all at once.
Please follow up with your sleep medicine/pulmonary doctor regarding lung nodule follow up, new CPAP mask and discuss Zepbound (approved for weight loss in sleep apnea patients)
Instructions: *CBC Heart Failure Instructions
Referrals:
Dimple Montero MD [Non-Admitting Privileges, Cardiology]
Gavi De Jesus DO [Family Provider, Internal Medicine]
Additional Discharge Medication Instructions: stop diltiazem + Losartan/HCTZ. Metoprolol dose increased (new script given)
Prescriptions:
New
metoprolol succinate 100 mg Tablet Extended Release 24 Hr
100 mg PO BID Qty: 60 0RF
spironolactone 25 mg Tablet
25 mg PO DAILY Qty: 30 0RF
furosemide [Lasix] 40 mg tablet
40 mg PO DAILY Qty: 30 0RF
Continued
omeprazole 40 mg Capsule,Delayed Release(Dr/Ec)
40 mg PO DAILY
atorvastatin [Lipitor] 20 mg Tablet
20 mg PO 2000 Qty: 30 0RF
flecainide 100 mg Tablet
100 mg PO DAILY Qty: 30 0RF
dabigatran etexilate [Pradaxa] 150 mg Capsule
150 mg PO BID Qty: 60 0RF
Changed
flecainide 100 mg Tablet
200 mg PO QPM Qty: 60 0RF
Rx Instructions:
200 mg orally;
Discontinued
metoprolol succinate [Toprol XL] 50 mg Tablet Extended Release 24 Hr
See Rx Instructions .ROUTE .COMPLEX
Rx Instructions:
50 mg orally daily at 1800
No Action
Theragen Tablet
1 tab PO DAILY
cholecalciferol (vitamin D3) [Vitamin D3] 25 mcg (1,000 unit) Tablet
25 mcg PO DAILY
cyanocobalamin (vitamin B-12) 1,000 mcg Tablet
1,000 mcg PO DAILY
losartan-hydrochlorothiazide 100-25 mg Tablet
1 tab PO DAILY
diltiazem HCl 120 mg Capsule,Extended Release 24 Hr
120 mg PO DAILY
Discharge Orders:
Discharge Patient (As Directed); Ordered 08/15/25
Ordered By: Tommy Perez
Discharge Date and Time
Print Language: KOREAN
[2025-08-15 10:55] VITALS: BP 130/81
--- NOTE | 2025-08-15 11:17 | W.PN.CD ---
Today's Communication / Plan
-
- Still in rate controlled AF
- Close to Euvolemic - discharge home on PO lasix
- Plan for outpatient cardiology evaluation. Appt with CCP in 3 days.
Impression / Plan
-
HFpEF - acute.
-in setting of recent Afib recurrence
-echo as below, EF normal, no valve disease
-s/p IV diuresis, which requires intensive monitoring
-weight on admit 286 lbs, now 270 lbs
-Switch to PO lasix now.
- Stable for discharge.
Hypokalemia - noted on arrival, resolved following replacement
-stop continued KCL replacement since added Aldactone (BP, hypokalemia, and CHF). awaiting am labs
-will have CM pavon SGLT2I, but may just add as an OP to avoid adding too many meds and avoiding AMOR as result; she does not have frequent UTI's (just the one a few weeks ago)
Afib - paroxysmal
-current OP medications are flecainide 100 mg in AM and 200 mg in PM (recently increased by her blurb writer), as well as metoprolol 50 mg in PM and diltiazem 120 mg PO BID
-stopped diltiazem and increased metoprolol. Monitor telemetry with these changes
-Still in AF
-continue Pradaxa for OAC
HTN - chronic
-monitor with diltiazem stopped, metoprolol increased, losartan/HCTZ stopped, Aldactone added and continue IV diuresis
Obesity - severe
-would benefit from weight loss
Untreated sleep apnea - chronic
-reports she does not tolerate treatment
Data:
Chest CT: MODERATE ACUTE INTERSTITIAL and ALVEOLAR CARDIOGENIC PULMONARY EDEMA. Mild cardiomegaly. Small right pleural effusion. mild bibasilar subsegmental atelectasis. 1.5 cm part solid pulmonary nodule in the right lower lobe. Diagnostic
possibilities are (1) right lower lobe lung cancer or (2) focal infectious or inflammatory pneumonitis. 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
Echo 08/12/25:
1. Contrast was used.
2. Normal biventricular size and systolic function, with no regional wall motion abnormalities. Estimated LVEF 55-60%.
3. No significant valve disease.
4. No prior study for comparison.
Physical Exam
Vital Signs/Labs
Vital Signs
Temp Pulse Resp BP Pulse Ox
98 F 83 16 130/81 100
08/15/25 10:55 08/15/25 10:55 08/15/25 10:55 08/15/25 10:55 08/15/25 10:55
08/14/25 08/15/25 08/16/25
06:59 06:59 06:59
Actual Weight 124.341 kg 122.215 kg
08/12/25 04:11
08/15/25 07:51
Magnesium 2.0 mg/dl (1.6-2.3) 08/15/25 07:51
Triglycerides 129 mg/dl (10-149) 08/12/25 04:11
LDL Cholesterol, Calc 88 mg/dl 08/12/25 04:11
VLDL Cholesterol, Calc 25 mg/dl (0-30) 08/12/25 04:11
HDL Cholesterol 44 mg/dl 08/12/25 04:11
08/11/25
16:41
Cjm-D-Ecxmizcdiff Pept 599
LAB Results
08/12/25
12:24
Troponin I 0.015
Physical Exam
Constitutional: No acute distress and Comfortable
EENT: Anicteric and Moist mucous membranes
Cardiovascular: Pedal edema is absent, Rhythm/rate is irregular, JVD present and Systolic murmur present
Respiratory: Respiratory effort normal, Wheeze Absent and Crackles Absent
GI: Soft, Normal bowel sounds and Distention present
Neuro/Psych: Alert, Oriented and AO x 3
Data Reviewed
-
Date of Service: August 15, 2025
Medical Decision Making: Reviewed Test Results, Test Interpretation and Review of Case with other Provider
EKG: Tracing Personally Visualized and interpreted
Medical Tests (PFT, Pathology etc): Discussed with Physician, Discussed with Patient and Discussed with Family
Labs: Labs Reviewed by me
Old Records: Reviewed
--- NOTE | 2025-08-15 11:49 | CM ---
accounting advisory services manager met with patient and patient's spouse at bedside, patient is for discharge to home today, immigration case manager reviewed with patient visiting nurses services with [facility], a special program for CHF patients but patient declined visiting nurses
services. IMM completed and placed on chart.
Plan; Home with spouse, patient has declined visiting nurse services.
--- NOTE | 2025-08-16 09:49 | W.HF.CON ---
Heart Failure
- LV Function
Left ventricular function study result: LV Ejection fraction >/= 50%
Ejection Fraction Percentage: 55-60
- ARNI
Patient already on ARNI: No
Heart Failure ARNI Not Indicated: LV Ejection Fraction >/= 40%
- ACEI/ARB
Patient already on ACEI/ARB: No
Heart Failure ACEI/ARB Not Indicated: LV Ejection Fraction > 40%
- Beta Anjelica
Patient already on Evidence Based Beta Anjelica: Yes
- Mineralocorticord Receptor Antagonist
Patient already on MRA: Yes
- SGLT-2 Inhibitor
Patient already on SGLT-2 Inhibitor: No
Heart Failure SGLT-2 Inhibitor Contraindication: Patient Refusal
- Afib Anticoagulation
Patient already on Anticoagulation for Afib: Yes
- NYHA CHF Classification
NYHA CHF Classification Level: Class III - Symptoms w/ min exertion, interferes w/ nml daily activity
- ACC/AHA Stage
ACC/AHA Stage: Stage C: Symptomatic Heart Failure
== END 2025-08-15 11:33 | disposition home or self-care (01) | DRG 291 ==
LOC: 4 WEST ACU 20:16
PROVIDERS: Nurse Practitioner; ADMITTING PHYSICIAN Hospitalist; ATTENDING PHYSICIAN Internal Medicine; EMERGENCY PHYSICIAN Emergency Medicine; FAMILY PHYSICIAN Internal Medicine; OTHER PHYSICIAN Internal Medicine
DX: I11.0 Hypertensive heart disease with heart failure (principal); I50.31 Acute diastolic (congestive) heart failure; J96.01 Acute respiratory failure with hypoxia; Z68.41 Body mass index [BMI] 40.0-44.9, adult; E66.09 Other obesity due to excess calories; I48.0 Paroxysmal atrial fibrillation; G47.33 Obstructive sleep apnea (adult) (pediatric); Z87.891 Personal history of nicotine dependence; Z79.01 Long term (current) use of anticoagulants; E78.00 Pure hypercholesterolemia, unspecified; E87.6 Hypokalemia; Z82.49 Family history of ischemic heart disease and other diseases of the circulatory system
CPT/HCPCS: 71275; 80048; 80053; 80061; 83036; 83735; 83880; 84443; 84484; 85025; 85027; 87502; 87811; 93005; 93306; 96374; 99285; Q9950; Q9967